=== PATIENT | male | born 1985 | race Caucasian/White ===

== ENCOUNTER 2022-03-12 14:45 | Inpatient (IN) | payer OTHER ==
[~2022-03-12] VITALS: Ht 167.6 cm; Wt 61.9 kg
[2022-03-12 14:58] VITALS: BP 125/66
[2022-03-12 16:21] LABS: BASO % 0.6 % (0.0-1.0); EOS # 0.2 10*3/uL (0.0-0.4); HEMATOCRIT 40.9 % (42.0-52.0); LYMPH # 1.4 10*3/uL (1.3-4.4); LYMPH % 21.2 % (27.0-41.0); MEAN CORPUSCULAR HGB CONC 34.5 g/dl (33.0-37.0); MONO # 0.5 10*3/uL (0.1-1.0); MONO % 7.5 % (3.0-9.0); NEUT # 4.4 10*3/uL (2.3-7.9); NEUT % 67.4 % (47.0-73.0); PLATELET COUNT AUTOMATED 262 10*3/uL (130-400); WHITE BLOOD COUNT 6.6 10*3/uL (4.8-10.8)
[2022-03-12 16:43] LABS: ALKALINE PHOSPHATASE 110 U/L (45-117); BUN 15 mg/dl (7-24); CHLORIDE 103 mmol/L (98-107); CREATININE 0.79 mg/dL (0.70-1.30); POTASSIUM 4.1 mmol/L (3.5-5.1); SGOT/AST 15 IU/L (3-35); SGPT/ALT 15 U/L (12-78); SODIUM 137 mmol/L (136-145); TOTAL PROTEIN 8.1 gm/dL (6.4-8.2)
[2022-03-12 16:44] LABS: ETHYL ALCOHOL < 3.0 mg/dl (<3)
[2022-03-12] MEDS ORDERED: METHADOSE40 MG PO (17:36)
[2022-03-12 18:02] VITALS: BP 132/76
[2022-03-12 20:00] VITALS: BP 114/64
[2022-03-12 22:48] LABS: BILIRUBIN Negative (Negative); BLOOD Negative (Negative); CLARITY Turbid (Clear); COLOR Yellow (Yellow); GLUCOSE Negative (Negative); KETONE Negative (Negative); LEUKO ESTERASE Negative (Negative); NITRITE Negative (Negative); PH 7.5 (4.5-8.0)
[2022-03-12 22:52] LABS: URINE AMPHETAMINES < 1000 (1000ng/ml); URINE BARBITURATES < 200 (200ng/ml); URINE BENZODIAZEPINES < 200 (200ng/ml); URINE CANNABINOIDS (THC) < 50 (50ng/ml); URINE COCAINE > 300 (300ng/ml); URINE METHADONE > 300 (300ng/ml); URINE OPIATES < 300 (300ng/ml)
[2022-03-12 22:53] LABS: URINE PHENCYCLIDINE < 25 (25ng/ml)
[2022-03-12 23:01] LABS: BACTERIA TRACE; WBC 0-2 wbc/hpf (0-5)
[2022-03-13] VITALS: BP 116/63
[2022-03-13 06:16] LABS: BASO % 0.7 % (0.0-1.0); EOS # 0.3 10*3/uL (0.0-0.4); EOS % 5.8 % (1.0-4.0); HEMATOCRIT 39.5 % (42.0-52.0); LYMPH % 37.9 % (27.0-41.0); MEAN CELL VOLUME 93.8 fl (80.0-94.0); MEAN CORPUSCULAR HGB 30.9 pg (27.0-31.0); MEAN CORPUSCULAR HGB CONC 32.9 g/dl (33.0-37.0); MEAN PLATELET VOLUME 9.4 fl (9.6-12.3); MONO # 0.6 10*3/uL (0.1-1.0); MONO % 10.5 % (3.0-9.0); NEUT # 2.4 10*3/uL (2.3-7.9); NEUT % 44.9 % (47.0-73.0); PLATELET COUNT AUTOMATED 258 10*3/uL (130-400); RED BLOOD COUNT 4.21 10*6/uL (4.50-5.90); RED CELL DISTRI WIDTH 14.3 % (0-14.5); WHITE BLOOD COUNT 5.4 10*3/uL (4.8-10.8)
[2022-03-13 06:21] LABS: BUN 13 mg/dl (7-24); CHLORIDE 105 mmol/L (98-107); CREATININE 0.76 mg/dL (0.70-1.30); POTASSIUM 3.7 mmol/L (3.5-5.1); SODIUM 136 mmol/L (136-145)
[2022-03-13 08:00] VITALS: BP 107/63
[2022-03-13 12:00] VITALS: BP 123/82
[2022-03-13 16:00] VITALS: BP 125/80
[2022-03-13 20:00] VITALS: BP 112/66
[2022-03-14] VITALS: BP 106/58
[2022-03-14 08:00] VITALS: BP 118/64
[2022-03-14] MEDS ORDERED: DOXYCYCLINE MO100 MG PO (09:41)
== END 2022-03-14 15:26 | disposition home or self-care (01) | DRG 773 ==
LOC: ED 14:45 → EDHOLD 16:44 → 4E 16:44 → EDHOLD 17:03 → 4E 17:05
PROVIDERS: Family Medicine; Nurse Practitioner Family; ADMIT Student in an Organized Health Care Education/Training Program; ATTEND Student in an Organized Health Care Education/Training Program
DX: F11.20 Opioid dependence, uncomplicated (principal); F14.90 Cocaine use, unspecified, uncomplicated; L02.414 Cutaneous abscess of left upper limb; E44.0 Moderate protein-calorie malnutrition; F10.10 Alcohol abuse, uncomplicated; R00.1 Bradycardia, unspecified; D64.9 Anemia, unspecified; F17.210 Nicotine dependence, cigarettes, uncomplicated; F41.9 Anxiety disorder, unspecified; Z71.6 Tobacco abuse counseling; Z68.22 Body mass index [BMI] 22.0-22.9, adult